=== PATIENT | female | born 1945 | race Hispanic/Latino ===

== ENCOUNTER 2017-05-25 08:03 | Day surgery (SDC) | payer OTHER ==
[~2017-05-25] VITALS: Ht 152.4 cm; Wt 77.8 kg
[~2017-05-25 08:03] MED LIST: ALEN70TA47 PO; CALC600T12 PO; FISH1CAP49 PO; GLUC100019 PO; LEVO50TA11 PO; LISI2.5T2 PO; METF500T6 PO; SIMV5TAB6 PO; SODIUM CHLORIDE 0.9% 1000ML 1,000 ML IV ONE
[2017-05-25 08:12] VITALS: BP 165/72
[2017-05-25 08:35] VITALS: BP 165/72
[2017-05-25] MEDS ORDERED: PROPOFOL 1000 MG/100 ML 100 ML IV ONE (09:46)
[2017-05-25 10:06] VITALS: BP 90/45
== END 2017-05-25 10:37 ==
LOC: DAH 08:03
PROVIDERS: ATTEND Internal Medicine Gastroenterology
DX: Z09 Encounter for follow-up examination after completed treatment for conditions other than malignant neoplasm (principal); D12.8 Benign neoplasm of rectum; K63.89 Other specified diseases of intestine; K57.30 Diverticulosis of large intestine without perforation or abscess without bleeding; M19.90 Unspecified osteoarthritis, unspecified site; E03.9 Hypothyroidism, unspecified; E11.9 Type 2 diabetes mellitus without complications; Z86.010 Personal history of colon polyps; Z83.3 Family history of diabetes mellitus; Z82.49 Family history of ischemic heart disease and other diseases of the circulatory system
CPT/HCPCS: 82948; 88305; A4606; J2704; J7030

== ENCOUNTER 2018-03-29 18:58 | Emergency (ER) | payer OTHER ==
[~2018-03-29 18:58] MED LIST changes: +ALEN70TA10 PO; -ALEN70TA47 PO; +METF-444 PO; -METF500T6 PO; +SIMV5TAB58 PO; -SIMV5TAB6 PO; -SODIUM CHLORIDE 0.9% 1000ML 1,000 ML IV ONE
[2018-03-29] MEDS ORDERED: FAMOTIDINE 20MG TAB 20 MG TAB ONE (20:41)
[2018-03-29] MEDS ORDERED: DIPHENHYDRAMINE HCL 25 MG CAPSULE ONE (20:41)
== END 2018-03-29 21:00 | disposition home or self-care (01) ==
LOC: EDH 18:58
DX: T78.3XXA Angioneurotic edema, initial encounter (principal); R22.0 Localized swelling, mass and lump, head; I10 Essential (primary) hypertension; E11.9 Type 2 diabetes mellitus without complications
CPT/HCPCS: 99283; Q0163